=== PATIENT | female | born 1965 | race Caucasian/White ===

== ENCOUNTER → 2021-03-26 | Outpatient (CLI) | payer OTHER | LOC: CAT 12:37 | PROVIDERS: ATTEND Internal Medicine Cardiovascular Disease | DX: Z13.6 Encounter for screening for cardiovascular disorders (principal) ==

== ENCOUNTER → 2021-05-15 | Outpatient (CLI) | payer OTHER | LOC: SJCVCIMAG 09:47 | PROVIDERS: ATTEND Internal Medicine Cardiovascular Disease | DX: I10 Essential (primary) hypertension (principal); E78.5 Hyperlipidemia, unspecified; I34.1 Nonrheumatic mitral (valve) prolapse; I34.0 Nonrheumatic mitral (valve) insufficiency; Z79.899 Other long term (current) drug therapy ==

== ENCOUNTER 2021-06-04 21:39 | Emergency (ER) | payer BC, OTHER ==
[~2021-06-04] VITALS: Ht 170.2 cm; Wt 61.2 kg
[2021-06-04 22:02] LABS: URINE BILIRUBIN NEGATIVE (Negative); URINE BLOOD 2+ (Negative); URINE CLARITY SL CLOUDY; URINE COLOR YELLOW; URINE GLUCOSE-RANDOM* NEGATIVE (Negative); URINE KETONES NEGATIVE (Negative); URINE NITRITE-REFLEX NEGATIVE (Negative); URINE PROTEIN (DIPSTICK) 1+ (Negative); URINE SPECIFIC GRAVITY 1.015 (1.005-1.035); URINE UROBILINOGEN 0.2 E.U./dl (0.2-1.0)
[2021-06-04 22:03] LABS: URINE LEUKOCYTES-REFLEX 2+ (Negative)
[2021-06-04 22:20] LABS: CASTS None Seen /LPF (None Seen); CRYSTALS None Seen /LPF (None Seen); MUCUS 0-3 Light strn/LPF (None Seen); SQUAMOUS 4-10 Moderate /LPF (0-3)
[2021-06-04 23:01] LABS: ABSOLUTE NEUTROPHILS 9.2 thou/uL (1.4-8.2); BASOPHILS 0.1 % (0.0-2.0); EOSINOPHILS 0.5 % (0.0-3.0); HEMATOCRIT 39.7 % (37.0-47.0); LYMPHOCYTES 11.6 % (24.0-44.0); MCH 29.8 pg (26.0-34.0); MCHC 32.8 g/dL (28.0-37.0); MCV 90.8 fL (80.0-100.0); MONOCYTES 9.3 % (1.0-8.0); PLATELET COUNT 178 thou/uL (150-400); POLYS 78.5 % (36.0-66.0); RBC 4.37 mil/uL (4.20-5.00); RDW 13.1 % (10.5-14.5); WBC 11.7 thou/uL (4.0-11.0)
[2021-06-04 23:09] LABS: CALCIUM 9.2 mg/dL (8.5-10.1); CREATININE 0.9 mg/dL (0.6-1.0); POTASSIUM 3.8 mmol/L (3.5-5.1)
[2021-06-04] MEDS ORDERED: CEPHALEXIN500 MG PO (23:21)
[2021-06-05 00:07] VITALS: BP 154/79
== END 2021-06-05 00:37 | disposition home or self-care (01) ==
LOC: ER 21:39
PROVIDERS: Emergency Medicine
DX: N39.0 Urinary tract infection, site not specified (principal); Z88.6 Allergy status to analgesic agent